=== PATIENT | female | born 1980 | race Two or more races ===

== ENCOUNTER → 2021-03-21 10:49 | Outpatient (BNVA) | payer OTHER, SELFPAY | PROVIDERS: PCP Internal Medicine; Visit Provider Physician Assistant ==

== ENCOUNTER → 2021-03-22 08:05 | Outpatient (BNVA) | payer OTHER, SELFPAY | PROVIDERS: PCP Internal Medicine; Visit Provider Surgery ==

== ENCOUNTER 2021-04-26 09:01 | Outpatient (REF) | payer OTHER, SELFPAY ==
--- NOTE | ~2021-04-26 | XR_ITS ---
EXAMINATION: XR CHEST CLINICAL INFORMATION: Preop COMPARISON: None TECHNIQUE: 2 views of the chest were obtained. FINDINGS: No significant abnormality is noted involving the heart, lungs, mediastinum, bony thorax or soft tissues. XR/XR chest 2V IMPRESSION: Unremarkable examination.
--- NOTE | ~2021-04-26 | US_ITS ---
EXAMINATION: US COMPLETE ABDOMEN WITH LIVER ELASTOGRAPHY CLINICAL INFORMATION: Moderate to severe obesity due to excess calories COMPARISON: None. TECHNIQUE: Real-time imaging of the abdominal viscera. Noninvasive ultrasound liver fibrosis assessment is performed using Anita ElastPQ point quantification shear wave elastography (pSWE) with a C5-2 MHz transducer. Multiple elastography samples are obtained. FINDINGS: PANCREAS: The visualized pancreatic head and body are normal in appearance. The remainder of the pancreas is obscured from visualization by the overlying bowel gas. ABDOMINAL AORTA: The proximal, middle, and distal aortic segments are normal in caliber. INFERIOR VENA CAVA: Visualized portions are normal. LIVER: The liver demonstrates normal size, contour and increased echogenicity. No focal lesion or intrahepatic biliary duct dilatation. The right lobe measures 17.7 cm in length. The left lobe measures 11.5 cm in length. Portal flow is hepatopedal. Shear wave liver elastography median stiffness is 1.25 m/s (reference: normal median stiffness is 1.3 m/s or less). IQR/median stiffness to assess sampling precision is 0.09 (reference: good quality data set is IQR/median stiffness of 0.15 or less). GALLBLADDER: There are multiple echogenic stones with positive LILLY sign. COMMON BILE DUCT: Normal in caliber measuring 0.60 cm in diameter. RIGHT KIDNEY: There is mid pole prominent pyramid with calcification and posterior shadowing likely small stone. The echogenic stone or calcification measures 0.6 x 0.2 x 0.6 cm. The prominent pyramid measures 1.8 x 1.4 x 1.4 cm. No renal calculi or focal parenchymal lesions. The kidney measures 11.0 cm in maximum dimension. LEFT KIDNEY: Normal. No hydronephrosis. No renal calculi or focal parenchymal lesions. The kidney measures 11.4 cm in maximum dimension. SPLEEN: Normal. The spleen measures 9.3 cm in maximum dimension. FREE FLUID: None. US/US abdomen comp w elastography IMPRESSION: 1. Hepatic steatosis without focal lesion. Gallstones with positive LILLY sign. Prominent right renal pyramid with calcification but no caliectasis or hydronephrosis seen. 2. Liver elastography: The liver stiffness 1.25 m/s. This corresponds to high probability normal. REFERENCE: Society of Radiologists in Ultrasound Liver Stiffness Thresholds (2020): LIVER STIFFNESS THRESHOLDS: *Liver Stiffness equal or less than 1.3 m/s: High probability of being normal. *Liver Stiffness less than 1.7 m/s: In the absence of other known clinical signs, rules out compensated advanced chronic liver disease. *Liver Stiffness 1.7-2.1 m/s: Suggestive of compensated advanced chronic liver disease but need further test for confirmation. *Liver Stiffness over 2.1 m/s: Rules in compensated advanced chronic liver disease. *Liver Stiffness over 2.4 m/s: Suggestive of clinically significant portal hypertension. QUALITY OF DATA SET: *IQR/Median value equal or less than 0.15 implies a quality data set. *IQR/Median value over 0.15 implies a poor quality data set. SIGNIFICANT CHANGE FROM PRIOR EXAM: Significant change if liver stiffness measurement is 10% or greater from prior exam. OTHER CONSIDERATIONS: The stage of liver fibrosis may be overestimated in the setting of acute hepatitis, liver inflammation, elevated liver function tests, hepatic vascular congestion, obstructive cholestasis, non-fasting state, and infiltrative diseases such as amyloidosis and lymphoma. In some patients with NAFLD, the liver stiffness thresholds for compensated advanced chronic liver disease may be lower. In causes other than viral hepatitis and NAFLD, liver stiffness thresholds are not well established.
--- NOTE | ~2021-04-26 | FL_ITS ---
EXAMINATION: XR GI SERIES CLINICAL INFORMATION: Morbid/severe obesity due to excess calories. COMPARISON: None TECHNIQUE: Routine upper GI air-contrast study was performed in upright and lying position. FINDINGS: Following oral administration of thick barium and effervescent granules, there is normal propagation of bolus from the oral cavity through the pharynx, esophagus into stomach without any evidence of obstruction, narrowing or stricture. On placing patient supine and prone, the course, caliber and peristalsis of the stomach and the duodenum is normal. No gastroesophageal reflux or hiatal hernia seen. The mucosal pattern of the stomach and the duodenum is normal. FLUOROSCOPY TIME: 1.3 minutes DOSE AREA PRODUCT: 26.638 uGy-m2 (microgray-meter squared) FL/FL upper GI series IMPRESSION: Unremarkable upper GI air-contrast study.
== END 2021-04-26 09:02 | disposition home or self-care (01) ==
LOC: HO.US 09:01
PROVIDERS: Visit Provider Surgery
DX: E66.01 Morbid (severe) obesity due to excess calories (principal)
CPT/HCPCS: 71046; 74240; 76705; 76981

== ENCOUNTER → 2021-05-03 07:58 | Outpatient (BNVA) | payer OTHER, SELFPAY | PROVIDERS: PCP Internal Medicine; Visit Provider Dietitian, Registered | DX: E66.01 Morbid (severe) obesity due to excess calories (principal) | CPT/HCPCS: 97802 ==

== ENCOUNTER 2024-09-01 09:54 | Outpatient (AMB) | payer OTHER, SELFPAY ==
--- NOTE | 2024-09-01 10:00 | MHC.OFFVIS ---
Vital Signs 09/01/24 10:03 Height 5 ft 3 in Weight 262 lb 9.129 oz BMI 46.5 BP 116/88 Blood Pressure Location Rt brachial Position Sitting Pulse 74 Pulse Source Pulse Oximeter Intake Visit Reasons: Obesity, pre-DM Intake Note: New patient externally referred by PCP for Obesity and Pre Diabetes. 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 She reports a gradual weight gain of approximately 15 pounds over the past year despite attempts at various diet interventions, including low carbohydrate diets and membership in weight management programs like Weight Watchers. In the past, she trialed Phentermine for weight loss, achieving an initial loss of 20 pounds before discontinuing due to cardiovascular side effects, specifically tachycardia. The patient has a family history of diabetes and reports being prediabetic, though recent glucose testing showed a level of 81 mg/dL. There is no personal history of thyroid disorders, although her family does have a history of thyroid issues, but she has undergone past evaluations with no significant findings. Regarding sleep, she experiences snoring and suspects possible sleep apnea due to her family history but has not been evaluated or treated for this condition. Previous consultations with a infectious disease technician have been made, but no surgical weight loss interventions have been pursued. The patient has attempted various dietary strategies to manage her weight. These include low carbohydrate plans, participation in Weight Watchers, and caloric restriction. Despite these efforts, sustained weight loss has been unsuccessful. The patient sees a infectious disease technician about three years ago to explore surgical options, which she eventually declined. Her diet history does not indicate specific allergies or intolerances. . [facility] Medical History (Updated 03/31/21 @ 10:12 by Lizette Mejia [facility]) Anxiety Depression Morbid obesity Surgical History Hx of tubal ligation Family History Mother Hypertension Thyroid crisis Obesity Father No problems noted. Brother No problems noted. Sister No problems noted. Daughter No problems noted. Daughter No problems noted. Daughter No problems noted. Social History Alcohol intake: current Alcohol intake frequency: holidays/special occasions only Patient Tobacco Use Status: Never used Tobacco Physical Exam Vital Signs: BMI result Body Mass Index 46.5 Const Other: Absence of cushingoid features. Thyroid gland is normal size weighs about 15 g. There are no thyroid nodules Assessment & Plan Assessment & Plan (1) Morbid obesity: Code(s): E66.01 - Morbid (severe) obesity due to excess calories Category: Medical Plan: 1. Obesity: We discussed the patient's persistent obesity and the challenges in achieving sustained weight loss despite using various methods. Considering the patient's medical history, including prediabetes and past Phentermine-induced tachycardia, a referral to a infectious disease technician for ongoing support and a potential prescription for GLP-1 agonists was advised. These medications may aid in weight management by altering the metabolic set point, although they require prior authorization and may not be covered by insurance initially. If insurance denies GLP-1 agonists under obesity, consideration for off-label use in prediabetes due to potential benefits in reducing insulin resistance was suggested. 2. Prediabetes: Given the patient's prediabetes status and family history of diabetes, recommendations include monitoring glucose levels and lifestyle changes. Discussion around the possibility of GLP-1 agonists for assisting with glucose control was also included, with mention of ongoing research and potential benefits. Further tailored intervention will depend on insurance approval and the patient's response to treatment. The patient had an opportunity to ask questions regarding treatment plan. The patient expressed understanding and agreement with the above treatment plan. I extensively discussed with the patient her weight management challenges, the difficulties attributed to socioeconomic factors, and the lifestyle dynamics involving genetic predispositions to obesity. The patient was educated regarding modern pharmacotherapy, especially GLP-1 receptor agonists like Zepbound and Mounjaro, which could redefine weight management strategies by addressing hunger signals and metabolic set points. Given the potential costs associated with these medications, we reviewed the likelihood of insurance coverage challenges and alternative options, including off-label indications or self-pay routes through pharmaceutical programs. Consents were obtained to proceed with the necessary steps for insurance prior authorization, and the necessity and protocol for monitoring and follow-up for efficacy and potential side effects such as pancreatitis are emphasized. Alternative intervention plans such as continued nutrition consultations and behavior modification through structured programs were recommended in the interim. - Consult with your infectious disease technician regularly for ongoing dietary guidance. - Await notification regarding insurance approval for GLP-1 medication and discuss cost alternatives if needed. - Monitor your blood glucose and maintain a lifestyle that encourages good glucose control. - Follow up in one month with the nurse practitioner, Karen Roche NP , for further assistance with weight management strategies. - Report any new symptoms or concerns that arise, particularly any gastrointestinal changes or signs of dizziness. - Patient was informed and verbally consented to the use of an ambient scribe for clinic note documentation during this visit. Orders: Referrals Nutrition/Dietitian Referral E66.01 - Morbid (severe) obesity due to excess calories Medications: New tirzepatide (weight loss) (Zepbound) for 4 weeks 2.5 mg (0.5 mL) subcut QWEEK 2 mL 4RF Coding Level of Care Code New Pt Level 4 (64270) Diagnoses Morbid obesity E66.01
[2024-09-01 10:03] VITALS: BP 116/88; PULSE 74; BMI 46.5
== END 2024-09-01 10:25 | disposition home or self-care (01) ==
LOC: HO.ENCR 09:55
PROVIDERS: PCP Internal Medicine; Visit Provider Internal Medicine Endocrinology, Diabetes & Metabolism
DX: E66.01 Morbid (severe) obesity due to excess calories (principal)
CPT/HCPCS: 99204

== ENCOUNTER → 2024-09-01 09:54 | Outpatient (BNVA) | payer OTHER, SELFPAY | PROVIDERS: PCP Internal Medicine; Visit Provider Internal Medicine Endocrinology, Diabetes & Metabolism | DX: E66.01 Morbid (severe) obesity due to excess calories (principal); R73.03 Prediabetes; Z68.42 Body mass index [BMI] 45.0-49.9, adult | CPT/HCPCS: 99202 ==

== ENCOUNTER 2024-09-15 11:10 | Outpatient (AMB) | payer OTHER, SELFPAY ==
--- NOTE | 2024-09-15 11:15 | A.OFFVIS_ITS ---
VS Expanded 09/15/24 11:16 09/28/24 21:19 Height 5 ft 3 in 5 ft 3 in Weight 259 lb 0.69 oz 259 lb BMI 45.9 45.9 Intake Visit Reasons: Obesity, Pre-DM Allergies No Known Allergies Allergy (Verified 09/01/24 10:04) Nutrition Presentation Details: Pt presents for MNT for Pre DM, morbid obesity Food frequency fruits: 0-1/d vex/wk fish: 0-1/m dairy 3/d starches > 20 beverages: water/juice/soda physical activity: ADL etoh/smoking--- BS Monitoring Most Recent Diabetes Results: No Data to Display GWT-Oddzkee-Wt.Jeor Equation Height: 5 ft 3 in Weight: 259 lb Resting Metabolic Rate: 1796.27 Calculated Activity Level: Sedentary Calories Needed to Maintain Weight: 2155.52 Diagnosis Nutrition problem #1: altered nutrition labs and food nutri know defi As related to (etiology) #1: diagnosis As evidenced by (sign/symptom) #1: knowledge deficit of diet [facility] Medical History (Updated 03/31/21 @ 10:12 by Lizette Mejia [facility]) Anxiety Depression Morbid obesity Surgical History Hx of tubal ligation Family History Mother Hypertension Thyroid crisis Obesity Father No problems noted. Brother No problems noted. Sister No problems noted. Daughter No problems noted. Daughter No problems noted. Daughter No problems noted. Social History Alcohol intake: current Alcohol intake frequency: holidays/special occasions only Patient Tobacco Use Status: Never used Tobacco Assessment & Plan Assessment & Plan (1) Morbid obesity: Code(s): E66.01 - Morbid (severe) obesity due to excess calories Category: Medical Plan: Wt: 118 Kg ( 09/25 ) Est kcal needs as per MSJ: 2100 (40% carb, 30% protein/fat) Est fluid needs as per 25-30 ml/d: 3500 Est prot per day as per 1 g/kg bw: 118 Recommend fiber intake : 8-10 g per day and gradually increase to 25-28 g per day for women and 35-38 g for men or as tolerated Recommend sodium intake per day : less than 2000 mg Educated patient on: ( R = reviewed V = verbalizes understanding N/R = needs review N/A = not applicable * Food sources of carbohydrate, adequate serving sizes and its role in various health conditions: R * Differences between complex carbohydrates a simple carbohydrates, role of fiber in diet: R * Lean protein sources of foods: R * Differences between types of fats and role in diet (mono on saturated fat fatty acids, saturated fatty acids, trans fats): R * Food sources of sodium in salt and healthy modifications for heart health in kidney health: R V R/V * Vitamins and minerals: R V N/R * Healthy plate method concept: R * Physical activity: Benefits a precaution: R V N/R * Patient Instructions: Practice mindful eating Reduce on sugars /total carb to less than 60- 70 g per meal (3 meal/d ) and 0- 20 g as snack 1-2 /day if needed see meal ideas Coding Level of Care Code Nutr Indiv Intake (96690) Diagnoses Morbid obesity E66.01 Time Spent (min) 30
[2024-09-15 11:16] VITALS: BMI 45.9
[2024-09-28 21:19] VITALS: BMI 45.9
== END 2024-09-15 11:48 | disposition home or self-care (01) ==
LOC: HO.ENCR 11:10
PROVIDERS: PCP Internal Medicine; Visit Provider Dietitian, Registered
DX: E66.01 Morbid (severe) obesity due to excess calories (principal)

== ENCOUNTER → 2024-09-15 11:10 | Outpatient (BNVA) | payer OTHER, SELFPAY | PROVIDERS: PCP Internal Medicine; Visit Provider Dietitian, Registered | DX: E66.01 Morbid (severe) obesity due to excess calories (principal); R73.03 Prediabetes; Z71.3 Dietary counseling and surveillance; Z68.42 Body mass index [BMI] 45.0-49.9, adult | CPT/HCPCS: 97802 ==

== ENCOUNTER 2024-10-01 11:00 | Outpatient (AMB) | payer OTHER, SELFPAY ==
--- NOTE | 2024-09-30 20:49 | A.OFFVIS_ITS ---
Vital Signs 10/01/24 11:03 Height 5 ft 3 in Weight 255 lb 11.779 oz BMI 45.3 BP 110/66 Blood Pressure Location Rt brachial Position Sitting Pulse 92 Pulse Source Pulse Oximeter Pulse Oximetry (%) 100 Oxygen Delivery Method Room Air Intake Visit Reasons: Obesity, Pre-DM Intake Note: Patient present here today for a follow-up on Obesity & Pre-DM, last seen by DR Bulmaro Mesa. 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 She was seen in initial consultation by Dr. Mesa 08/13/24 and prescribed zepbound 2.5mg weekly and by the master craftsman mariusz tyler this month. She reports a gradual weight gain of approximately 15 pounds over the past year despite attempts at various diet interventions, including low carbohydrate diets and membership in weight management programs like Weight Watchers. In the past, she trialed Phentermine for weight loss, achieving an initial loss of 20 pounds before discontinuing due to cardiovascular side effects, specifically tachycardia. Initial weight on 09/01/2024 to 62 10/01/2024 255 11.7 oz She met with the master craftsman several weeks ago. Following plan RN suggested. Working on increasing water and fiber consumption. Doing a protein shake in the am. Balanced supper Fruit in between. Starting exercising this week: walking one hour per day. The patient has a family history of diabetes and reports being prediabetic, though recent glucose testing showed a level of 81 mg/dL. There is no personal history of thyroid disorders, although her family does have a history of thyroid issues, but she has undergone past evaluations with no significant findings. Regarding sleep, she experiences snoring and suspects possible sleep apnea due to her family history but has not been evaluated or treated for this condition. Previous consultations with a master craftsman have been made, but no surgical weight loss interventions have been pursued. [facility] Medical History Anxiety Depression Morbid obesity Surgical History Hx of tubal ligation Family History Mother Hypertension Thyroid crisis Obesity Father No problems noted. Brother No problems noted. Sister No problems noted. Daughter No problems noted. Daughter No problems noted. Daughter No problems noted. Social History Alcohol intake: current Alcohol intake frequency: holidays/special occasions only Patient Tobacco Use Status: Never used Tobacco Physical Exam Vital Signs: Last Vital Signs Pulse 92 10/01/24 11:03 BP 110/66 10/01/24 11:03 Pulse Ox 100 10/01/24 11:03 Oxygen Delivery Method Room Air 10/01/24 11:03 BMI result Body Mass Index 45.3 Const Other: Absence of Cushingoid features. Absence of acromegalic features. Neck exam reveals nl size thyroid about 15 gms. No thyroid nodules palpable. Heart S1 S2, Reg R/R. No M/R G. Skin exam reveals absence of vitiligo or acanthosis nigricans. no edema Assessment & Plan Assessment & Plan (1) Morbid obesity: Code(s): E66.01 - Morbid (severe) obesity due to excess calories Category: Medical Plan: 44-year-old female with a prediabetes and obesity presents for 1 month follow up. She is doing well on set bound in his lost 7 lb. She has met with a master craftsman in his following the plan outlined by nutrition. She will follow up with the master craftsman next month. She has recently added 1 hour of walking daily. She was advised to wait live 3 times per week 20 minutes to 30 minutes using 5 lb dumbbells. She can Google an exercise program non YouTube. I recommended that she purchased the learn program for weight management work book and start working through the chapter hours. She was schedule follow up with either myself or Dr. Mesa in 2 months. She was again advise as did Dr. Mesa that she speak with her PCP about getting a screening sleep apnea study. She was advised untreated sleep apnea can lead to heart disease, diabetes and making weight reduction more difficult. A new prescription for Zepbound 5 mg was sent. She was asked to focus on increasing her water intake and fiber. If she develops any constipation she can also add an [id number] stool softener. If she has any untoward effects on the increased dose of Mounjaro she will contact our office. Medications: New tirzepatide (weight loss) (Zepbound) 5 mg (0.5 mL) subcut QWEEK 28 days 2 mL 3RF Discontinued tirzepatide (weight loss) (Zepbound) for 4 weeks Discontinued Reason: Doctor's Order 2.5 mg (0.5 mL) subcut QWEEK 2 mL 4RF Coding Level of Care Code Est Pt Level 3 (36902) Complex EM visit Add On G2211 Diagnoses Morbid obesity E66.01 Time Spent (min) 30 Comment Time spent reviewing labs/provider notes, face to face, chart doc
[2024-10-01 11:03] VITALS: BP 110/66; PULSE 92; O2SAT 100; BMI 45.3
== END 2024-10-01 11:25 | disposition home or self-care (01) ==
LOC: HO.ENCR 11:01
PROVIDERS: PCP Internal Medicine; Visit Provider Nurse Practitioner Adult Health
DX: E66.01 Morbid (severe) obesity due to excess calories (principal)
CPT/HCPCS: 99213; G2211

== ENCOUNTER → 2024-10-01 11:00 | Outpatient (BNVA) | payer OTHER, SELFPAY | PROVIDERS: PCP Internal Medicine; Visit Provider Nurse Practitioner Adult Health | DX: E66.01 Morbid (severe) obesity due to excess calories (principal); Z68.42 Body mass index [BMI] 45.0-49.9, adult | CPT/HCPCS: 99212 ==

== ENCOUNTER 2024-11-18 10:02 | Outpatient (AMB) | payer OTHER, SELFPAY ==
--- NOTE | 2024-11-18 07:33 | A.OFFVIS_ITS ---
Vital Signs 11/18/24 10:05 Height 5 ft 3 in Weight 251 lb 5.231 oz BMI 44.5 BP 108/78 Blood Pressure Location Rt brachial Position Sitting Pulse 97 Pulse Source Pulse Oximeter Intake Visit Reasons: Obesity Intake Note: Patient presents here today for a follow-up on Weight Management: Risk And Insurance Manager Required: No Accompanied by: Self / Same As Patient Allergies phentermine Adverse Reaction (Intermediate, Verified 11/18/24 10:06) tachycardia Medication List - Last Reconciled 11/18/24 by Karen Garcia NP ferrous fumarate 324 mg PO DAILY metformin ER 500 mg PO BID multivitamin 1 tab PO DAILY polyethylene glycol 3350 (Miralax) 17 grams PO DAILY quetiapine (Seroquel) 25 mg PO BEDTIME Zepbound (tirzepatide (weight loss)) 7.5 mg (0.5 mL) subcut QWEEK 28 days NS HPI Comments Details: The patient is a 44-year-old female presenting with weight management and evaluation for obesity treatment. She was seen in initial consultation by Dr. Mesa 08/13/24 and prescribed zepbound 2.5mg weekly and by the manager corporate marketing in September. This is her second follow up visit. At her last visit Zepbound was increased to 5 mg weekly and she was recommended to start weightlifting 3 times per week. She reports a gradual weight gain of approximately 15 pounds over the past year despite attempts at various diet interventions, including low carbohydrate diets and membership in weight management programs like Weight Watchers. In the past, she trialed Phentermine for weight loss, achieving an initial loss of 20 pounds before discontinuing due to cardiovascular side effects, specifically tachycardia. Initial weight on 09/01/2024 262 10/01/2024 255 11.7 oz 11/18/24 251 5 oz She met with the manager corporate marketing in September Following plan RN suggested. Working on increasing water and fiber consumption. Current food: Doing a protein shake in the am. Balanced supper salad with protein small portion of rice Has small cup of strawberries for lunch at night 1 peach She is struggling with water intake. Has some constipation, has tried prune juice and will be starting miralax. Exercise: walking one hour per day. weight lifting with small weights 3x weekly plans to start will start going to gym 30 min 3x weekly Behavior Modification: Patient is working through the self directed work book entitled the learn method for weight management. This is a 12 chapter work book which includes aspects of lifestyle, exercise, attitudes, relationships and nutrition. Diet: The patient has a family history of diabetes and reports being prediabetic, though recent glucose testing showed a level of 81 mg/dL. There is no personal history of thyroid disorders, although her family does have a history of thyroid issues, but she has undergone past evaluations with no significant findings. Regarding sleep, she experiences snoring and suspects possible sleep apnea due to her family history but has not been evaluated or treated for this condition. Previous consultations with a manager corporate marketing have been made, but no surgical weight loss interventions have been pursued. [facility] Medical History Anxiety Depression Morbid obesity Surgical History Hx of tubal ligation Family History Mother Hypertension Thyroid crisis Obesity Father No problems noted. Brother No problems noted. Sister No problems noted. Daughter No problems noted. Daughter No problems noted. Daughter No problems noted. Social History Alcohol intake: current Alcohol intake frequency: holidays/special occasions only Patient Tobacco Use Status: Never used Tobacco Physical Exam Vital Signs: Last Vital Signs Pulse 97 11/18/24 10:05 BP 108/78 11/18/24 10:05 BMI result Body Mass Index 44.5 Const Other: Absence of Cushingoid features. Absence of acromegalic features. Neck exam reveals nl size thyroid about 15 gms. No thyroid nodules palpable. No carotid bruits present. Lungs CTA. Heart S1 S2, Reg R/R. No M/R G. Skin exam reveals absence of vitiligo or acanthosis nigricans. No edema Assessment & Plan Assessment & Plan (1) Morbid obesity: Code(s): E66.01 - Morbid (severe) obesity due to excess calories Category: Medical Plan: 44-year-old with morbid severe obesity doing well on Mounjaro. She has steadily you losing weight. Only side effect is some constipation. She does not drink much water. Has tried prune juice, vegetables, fruits and just received a prescription for MiraLax from her primary care physician. We will cautiously increase her Mounjaro to 7.5 mg. She was advised if her constipation increases that she is to notify our office. She was asked to increase her water consumption which is currently fairly low. The patient had an opportunity to ask questions regarding treatment plan. The patient expressed understanding and agreement with the above treatment plan. She will start exercise and 3 times per week with weights. She is currently walking 1 hour per day. She will start to work through the learn method for weight control which has a 12 chapter self directed guide towards weight loss. Her prior authorization expires 03/09/2020 She will follow up with Dr. Mesa in 2 months Medications: New Zepbound (tirzepatide (weight loss)) 7.5 mg (0.5 mL) subcut QWEEK 2 mL 3RF 28 d ays NS Discontinued tirzepatide (weight loss) (Zepbound) Discontinued Reason: Doctor's Order 5 mg (0.5 mL) subcut QWEEK 28 days 2 mL 3RF Coding Level of Care Code Est Pt Level 3 (85434) Complex EM visit Add On G2211 Diagnoses Morbid obesity E66.01 Time Spent (min) 30 Comment Time spent reviewing labs/provider notes, face to face, chart doc
[2024-11-18 10:05] VITALS: BP 108/78; PULSE 97; BMI 44.5
== END 2024-11-18 10:35 | disposition home or self-care (01) ==
LOC: HO.ENCR 10:03
PROVIDERS: PCP Internal Medicine; Visit Provider Nurse Practitioner Adult Health
DX: E66.01 Morbid (severe) obesity due to excess calories (principal)
CPT/HCPCS: 99213; G2211

== ENCOUNTER → 2024-11-18 10:02 | Outpatient (BNVA) | payer OTHER, SELFPAY | PROVIDERS: PCP Internal Medicine; Visit Provider Nurse Practitioner Adult Health | DX: E66.01 Morbid (severe) obesity due to excess calories (principal); R73.03 Prediabetes; K59.00 Constipation, unspecified | CPT/HCPCS: 99212 ==

== ENCOUNTER 2025-01-18 10:32 | Outpatient (AMB) | payer OTHER, SELFPAY ==
--- NOTE | 2025-01-18 10:34 | A.OFFVIS_ITS ---
Vital Signs 01/18/25 10:35 Height 5 ft 3 in Weight 243 lb 13.3 oz BMI 43.2 BP 104/68 Blood Pressure Location Rt brachial Position Sitting Pulse 92 Pulse Source Pulse Oximeter Pulse Oximetry (%) 100 Oxygen Delivery Method Room Air Intake Visit Reasons: Obesity Intake Note: Patient presents here today for a follow-up on Weight Management. Search Director Required: No Accompanied by: Self / Same As Patient Allergies phentermine Adverse Reaction (Intermediate, Verified 01/18/25 10:37) tachycardia Medication List - Last Reconciled 01/18/25 by Bulmaro Mesa MD ferrous fumarate 324 mg PO DAILY metformin ER 500 mg PO BID multivitamin 1 tab PO DAILY polyethylene glycol 3350 (Miralax) 17 grams PO DAILY quetiapine (Seroquel) 25 mg PO BEDTIME Zepbound (tirzepatide (weight loss)) 7.5 mg (0.5 mL) subcut QWEEK 28 days NS HPI Comments Details: The patient is a 44-year-old female presenting with weight management and evaluation for obesity treatment. She reports a gradual weight gain of approximately 15 pounds over the past year despite attempts at various diet interventions, including low carbohydrate diets and membership in weight management programs like Weight Watchers. In the past, she trialed Phentermine for weight loss, achieving an initial loss of 20 pounds before discontinuing due to cardiovascular side effects, specifically tachycardia. The patient has a family history of diabetes and reports being prediabetic, o [facility] recent glucose testing showed a level of 81 mg/dL. There is no personal history of thyroid disorders, although her family does have a history of thyroid issues, but she has undergone past evaluations with no significant findings. Regarding sleep, she experiences snoring and suspects possible sleep apnea due to her family history but has not been evaluated or treated for this condition. Previous consultations with a senior net application developer have been made, but no surgical weight loss interventions have been pursued. The patient has attempted various dietary strategies to manage her weight. These include low carbohydrate plans, participation in Weight Watchers, and caloric restriction. Despite these efforts, sustained weight loss has been unsuccessful. The patient sees a senior net application developer about three years ago to explore surgical options, which she eventually declined. Her diet history does not indicate specific allergies or intolerances. Currently on Zepbound 7.5 mg Qwkly. Lost 8 lb since last visit The patient is a 44-year-old female presenting for weight management and follow- up on Zepbound therapy. The patient has been on Zepbound 7.5 mg for two months, reporting a weight loss of 9 pounds since the last visit. Initially, she experienced discomfort during the first month of therapy but is now tolerating the medication well. She continues to follow up with a senior net application developer, Concepcion, as part of her weight management plan. The patient is advised to maintain regular appointments with the senior net application developer for insurance purposes. The patient inquired about injection sites for Zepbound, noting discomfort when injecting in the arms and considering the legs as an alternative. The clinician recommended the abdomen as the preferred site, with variations around the belly button being acceptable. . PFSH Medical History Anxiety Depression Morbid obesity Surgical History Hx of tubal ligation Family History Mother Hypertension Thyroid crisis Obesity Father No problems noted. Brother No problems noted. Sister No problems noted. Daughter No problems noted. Daughter No problems noted. Daughter No problems noted. Social History Alcohol intake: current Alcohol intake frequency: holidays/special occasions only Patient Tobacco Use Status: Never used Tobacco Assessment & Plan Assessment & Plan (1) Morbid obesity: Code(s): E66.01 - Morbid (severe) obesity due to excess calories Category: Medical Plan: Currently on Zepbound 7.5 mg Q weekly with continued weight loss. Also continued nutritional counseling for Plan is to continue the Zepbound 1. Weight management The patient is on Zepbound 7.5 mg and has lost 9 pounds since the last visit. She initially experienced discomfort but is now tolerating the medication well. The patient is advised to continue follow-up with the senior net application developer and maintain regular appointments for insurance purposes. Injection site recommendations were discussed, with the abdomen being preferred. I discussed with the patient the importance of continuing her weight management plan with Zepbound and the role of the senior net application developer in her care. We reviewed the preferred injection sites for Zepbound, emphasizing the abdomen as the optimal location. I advised her to maintain regular follow-up appointments with the senior net application developer for insurance purposes. - Continue taking Zepbound 7.5 mg as prescribed. - Follow up with the senior net application developer regularly. - Use the abdomen as the preferred injection site for Zepbound. T The patient had an opportunity to ask questions regarding treatment plan. The patient expressed understanding and agreement with the above treatment plan. Patient was informed and verbally consented to the use of an ambient scribe for clinic note documentation during this visit. Coding Level of Care Code Est Pt Level 3 (70196) Diagnoses Morbid obesity E66.01
[2025-01-18 10:35] VITALS: BP 104/68; PULSE 92; O2SAT 100; BMI 43.2
== END 2025-01-18 10:46 | disposition home or self-care (01) ==
LOC: HO.ENCR 10:33
PROVIDERS: PCP Internal Medicine; Visit Provider Internal Medicine Endocrinology, Diabetes & Metabolism
DX: E66.01 Morbid (severe) obesity due to excess calories (principal)
CPT/HCPCS: 99213

== ENCOUNTER 2025-03-11 10:26 | Outpatient (AMB) | payer OTHER, SELFPAY ==
--- NOTE | 2025-03-11 10:46 | A.OFFVIS_ITS ---
VS Expanded 03/11/25 10:47 Height 5 ft 3 in Weight 234 lb 12.677 oz BMI 41.6 Intake Visit Reasons: Obesity Allergies phentermine Adverse Reaction (Intermediate, Verified 01/18/25 10:37) tachycardia Nutrition Presentation Details: Pt presents for MNT f/u for obesity Pt is on zepbound 7.5 mg/wk Pt reports working on diet modifications gradually Pt reports she has iron deficiency anemia and is taking iron supplements with vitamin c as prescribed by her PCP Pt reports hx of vit d deficiency and taking vit d supplement Pt reports she is working on having protein with each meal B: coffee with premier protein L: salad, 3 oz poultry or sandwich on white bread, juice dinner: 3 oz rilled chicken stir valiente with rice snack: cottage cheese with fruit Beverages: working on reducing sugars from beverages food frequency fluids/d: 24 oz fruits: 1-2/d vegetables:2 x/wk dairy: 3-4/d protein: poultry, beef legumes: 2x/wk noticing bowel changes since on zepbound ZMD-Qaiizvs-Tr.Jeor Equation Height: 5 ft 3 in Weight: 235 lb Resting Metabolic Rate: 1687.52 Calculated Activity Level: Sedentary Calories Needed to Maintain Weight: 2024.02 PFSH Medical History Anxiety Depression Morbid obesity Surgical History Hx of tubal ligation Family History Mother Hypertension Thyroid crisis Obesity Father No problems noted. Brother No problems noted. Sister No problems noted. Daughter No problems noted. Daughter No problems noted. Daughter No problems noted. Social History Alcohol intake: current Alcohol intake frequency: holidays/special occasions only Patient Tobacco Use Status: Never used Tobacco Assessment & Plan Assessment & Plan (1) Morbid obesity: Code(s): E66.01 - Morbid (severe) obesity due to excess calories Category: Medical Plan: Wt: 118 Kg ( 09/25 ), 106 kg(03/27) Est kcal needs as per MSJ: 2000 (40% carb, 30% protein/fat) Est fluid needs as per 25-30 ml/d: 3200 Est prot per day as per 1 g/kg bw: 100 (20-30 g protein 4-5 x a day) Recommend fiber intake : 8-10 g per day and gradually increase to 25-28 g per day for women and 35-38 g for men or as tolerated Recommend sodium intake per day : less than 2000 mg Educated patient on: ( R = reviewed V = verbalizes understanding N/R = needs review N/A = not applicable * Food sources of carbohydrate, adequate serving sizes and its role in various health conditions: R * Differences between complex carbohydrates a simple carbohydrates, role of fiber in diet: R * Lean protein sources of foods: R * Differences between types of fats and role in diet (mono on saturated fat fatty acids, saturated fatty acids, trans fats): R - choose low fat options * Food sources of sodium in salt and healthy modifications for heart health in kidney health: R V R/V * Vitamins and minerals: iron rich foods R * Healthy plate method concept: R * Physical activity: Benefits a precaution: R * Patient Instructions: Watch on food portion sizes, 3-4 oz lean protein at meal time Incorporate fiber rich foods in your diet (beans, lentils, fruits, whole grain foods) Have water with each meal and snack (ok to have herb/fruit flavored low sugar options Coding Level of Care Code Nutr Indiv Subseq (47107) Diagnoses Morbid obesity E66.01 Time Spent (min) 30
[2025-03-11 10:47] VITALS: BMI 41.6
[2025-03-11 12:11] VITALS: BMI 41.6
== END 2025-03-11 11:35 | disposition home or self-care (01) ==
LOC: HO.ENCR 10:27
PROVIDERS: PCP Internal Medicine; Visit Provider Dietitian, Registered
DX: E66.01 Morbid (severe) obesity due to excess calories (principal)

== ENCOUNTER → 2025-03-11 10:26 | Outpatient (BNVA) | payer OTHER, SELFPAY | PROVIDERS: PCP Internal Medicine; Visit Provider Dietitian, Registered | DX: E66.01 Morbid (severe) obesity due to excess calories (principal); Z68.41 Body mass index [BMI] 40.0-44.9, adult | CPT/HCPCS: 97803 ==